=== PATIENT | female | born 2005 | race Caucasian/White ===

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

== ENCOUNTER 2024-08-30 08:56 | Emergency (ER) | payer MEDICAID ==
[~2024-08-30] VITALS: Ht 162.6 cm; Wt 50.0 kg
[~2024-08-30 08:56] MED LIST: IBUP-2028 MT; ONDA4TAB5 MT
[2024-08-30 09:00] VITALS: O2SAT 99
[2024-08-30] MEDS ORDERED: ACETAMINOPHEN 325MG TABLET PO NR (09:15)
[2024-08-30] MEDS ORDERED: TOPUD PO (11:42)
[2024-08-30] MEDS: ACETAMINOPHEN 325MG TABLET PO NR (11:46)
[2024-08-30 11:57] VITALS: BP 135/76; PULSE 88; RESP 20; TEMP 36.89184; O2SAT 99
== END 2024-08-30 12:50 | disposition home or self-care (01) ==
LOC: ER 09:00
DX: S00.83XA Contusion of other part of head, initial encounter (principal); J45.909 Unspecified asthma, uncomplicated; Z86.59 Personal history of other mental and behavioral disorders; Z86.73 Personal history of transient ischemic attack (TIA), and cerebral infarction without residual deficits; V43.52XA Car driver injured in collision with other type car in traffic accident, initial encounter; Y93.89 Activity, other specified; Y92.89 Other specified places as the place of occurrence of the external cause; Y99.8 Other external cause status
CPT/HCPCS: 70486; 81025; 99284

== ENCOUNTER 2025-03-19 23:56 | Emergency (ER) | payer MEDICAID ==
[~2025-03-19] VITALS: Ht 157.5 cm; Wt 55.0 kg
[~2025-03-19 23:56] MED LIST changes: +TOPUD PO
[2025-03-20 00:09] VITALS: TEMP 37.1; O2SAT 99
[2025-03-20 01:12] LABS: CLARITY URINE CLEAR (CLEAR); COLOR URINE YELLOW (YELLOW); GLUCOSE URINE NEGATIVE (NEGATIVE); KETONES URINE NEGATIVE (NEGATIVE); LEUKOCYTE ESTERASE URINE 1+ (NEGATIVE); NITRITE URINE NEGATIVE (NEGATIVE); OCCULT BLOOD URINE NEGATIVE (NEGATIVE); PH URINE 6.5 (4.5-8.0); PROTEIN URINE NEGATIVE (NEGATIVE); SPECIFIC GRAVITY URINE 1.021 (1.005-1.030); UROBILINOGEN URINE 1.0 E.U./dL (0.2-1.0)
[2025-03-20 01:21] LABS: *AMPHETAMINES SCREEN URINE NEGATIVE (NEGATIVE); *BARBITURATES SCREEN URINE NEGATIVE (NEGATIVE); *BENZODIAZEPINES SCREEN URINE NEGATIVE (NEGATIVE); *COCAINE SCREEN URINE NEGATIVE (NEGATIVE); CANNABINOID URINE SCREEN NEGATIVE (NEGATIVE); ECSTASY MDMA SCREEN URINE NEGATIVE (NEGATIVE); METHADONE URINE SCREEN NEGATIVE (NEGATIVE); OPIATES URINE SCREEN NEGATIVE (NEGATIVE); PHENCYCLIDINE URINE SCREEN NEGATIVE (NEGATIVE)
[2025-03-20 01:25] LABS: BASOPHILS % 0.7 % (0.0-2.0); EOSINOPHILS % 2.3 % (0.0-5.0); HEMATOCRIT. 38.7 % (36.0-48.0); HEMOGLOBIN. 13.2 g/dL (12.0-16.0); LYMPHOCYTES % 33.5 % (20.0-50.0); MEAN PLATELET VOLUME 10.7 fl (7.4-10.4); MONOCYTES % 8.5 % (2.0-8.0); NEUTROPHILS % 55.0 % (40.0-76.0); PLATELET 227 x1000/uL (130-400); RED BLOOD CELL COUNT 4.29 mill/uL (4.2-5.4); RED CELL DISTRIBUTION WIDTH 12.7 % (11.6-14.6)
[2025-03-20 01:42] LABS: CREATININE 0.8 mg/dL (0.6-1.0); UREA NITROGEN BLOOD 10 mg/dL (9-23)
[2025-03-20 01:44] LABS: TROPONIN I HIGH SENSITIVITY 4 ng/L (3.0-34)
[2025-03-20 01:47] LABS: T4 FREE 1.27 ng/dL (0.89-1.76)
[2025-03-20 02:32] LABS: HCG SCREEN NEGATIVE
[2025-03-20 02:38] LABS: INR 1.0
[2025-03-20 02:53] VITALS: BP 115/67; PULSE 77; RESP 12; O2SAT 99
[2025-03-20 04:47] LABS: SQUAMOUS EPITHELIAL CELL URINE FEW /lpf (RARE/1+)
[2025-03-20 04:48] LABS: RBC URINE 0-2 /hpf (0-2)
[2025-03-20 04:49] LABS: BACTERIA URINE TRACE
== END 2025-03-20 03:10 | disposition home or self-care (01) ==
LOC: ER 23:56
DX: R07.89 Other chest pain (principal); J45.909 Unspecified asthma, uncomplicated; G43.909 Migraine, unspecified, not intractable, without status migrainosus; Z79.899 Other long term (current) drug therapy; Z98.890 Other specified postprocedural states
CPT/HCPCS: 99285; 80305; 80048; 81003; 84703; 83880; 84439; 84443; 85025; 85379; 85610; 84484; 36415; 71045; 93005; Z7610 ×2